=== PATIENT | female | born 1945 | race Caucasian/White ===

== ENCOUNTER 2017-05-21 14:40 | Emergency (ER) | payer OTHER ==
[~2017-05-21] VITALS: Ht 165.1 cm; Wt 77.1 kg
[2017-05-21] MEDS ORDERED: TEGRETOL200 MG (14:57)
== END 2017-05-21 19:22 | disposition home or self-care (01) ==
LOC: ER 14:40
DX: G89.11 Acute pain due to trauma (principal); M54.5 Low back pain; M53.3 Sacrococcygeal disorders, not elsewhere classified; R10.2 Pelvic and perineal pain; M54.10 Radiculopathy, site unspecified

== ENCOUNTER 2017-07-02 12:41 | Outpatient (CLI) | payer OTHER ==
[~2017-07-02 12:41] MED LIST: TEGRETOL200 MG
== END 2017-07-02 12:51 | disposition home or self-care (01) ==
LOC: RAD 12:41
DX: S22.42XA Multiple fractures of ribs, left side, initial encounter for closed fracture (principal); S42.115A Nondisplaced fracture of body of scapula, left shoulder, initial encounter for closed fracture